=== PATIENT | male | born 1995 | race Hispanic/Latino ===

== ENCOUNTER 2017-09-30 22:02 | Emergency (ER) | payer SELFPAY ==
--- NOTE | 2017-09-30 23:41 | RAD ---
LEFT FOOT THREE VIEW 09/30/17 HISTORY: Foreign body. Stepped on unknown object. COMPARISON: None. FINDINGS: No acute fracture. No malalignment. Lisfranc interval is maintained. No radiopaque foreign object is appreciated. IMPRESSION: Mild plantar forefoot edema. No radiopaque foreign object is appreciated. POS: [facility]
[2017-09-30] MEDS ORDERED: Bacitracin Zinc 1 Packet ONE (23:46)
== END 2017-10-01 | disposition home or self-care (01) ==
LOC: ERS 22:02
DX: S91.332A Puncture wound without foreign body, left foot, initial encounter (principal); W45.8XXA Other foreign body or object entering through skin, initial encounter